=== PATIENT | male | born 1995 | race African-American/Black ===

== ENCOUNTER 2022-05-02 17:14 | Emergency (ER) | payer MEDICAID, OTHER ==
[~2022-05-02] VITALS: Ht 167.6 cm; Wt 89.0 kg
[2022-05-02 17:39] VITALS: BP 117/76
[2022-05-02] MEDS ORDERED: ACETIC ACID 0.25% IR ONE (19:00)
[2022-05-02] MEDS ORDERED: CARBAMIDE PEROXIDE 6.5% OTIC SOLN 15ML LEFT EAR NR (21:00)
== END 2022-05-02 22:27 | disposition home or self-care (01) ==
LOC: ER 17:14
DX: H61.22 Impacted cerumen, left ear (principal)
CPT/HCPCS: 69209; 99282